=== PATIENT | female | born 1960 | race Native Hawaiian/Other Pacific Islander ===

== ENCOUNTER 2021-11-11 21:46 | Emergency (ER) | payer OTHER ==
[~2021-11-11] VITALS: Ht 152.4 cm; Wt 59.0 kg
[2021-11-11 21:46] VITALS: TEMP 98.2
[2021-11-11 22:34] LABS: PLATELET COUNT 166 K/uL (152-353)
[2021-11-11 23:20] VITALS: BP 148/67
[2021-11-12] MEDS ORDERED: ASPI81TA4 PO (10:42)
[2021-11-12] MEDS ORDERED: CITA20TA2 PO (10:43)
[2021-11-12] MEDS ORDERED: DIVALPROEX125 MG PO (10:43)
[2021-11-12] MEDS ORDERED: ROSU10TA PO (10:44)
[2021-11-12] MEDS ORDERED: DONEPEZIL HYDRO10 MG PO (10:44)
[2021-11-12] MEDS ORDERED: TEMA15CA19 PO (10:45)
[2021-11-12] MEDS ORDERED: ACETAMINOPHEN 500 MG PO (10:46)
[2021-11-12] MEDS ORDERED: GABA100C2 PO (10:47)
[2021-11-12] MEDS ORDERED: OXCARBAZEPIN150 MG PO (10:48)
[2021-11-12] MEDS ORDERED: MEMA10TA2 PO (10:49)
== END 2021-11-11 23:20 | disposition still patient (30) ==
LOC: ED 21:46
PROVIDERS: Emergency Medicine Emergency Medical Services
DX: R46.89 Other symptoms and signs involving appearance and behavior (principal); Z11.52 Encounter for screening for COVID-19; Z04.6 Encounter for general psychiatric examination, requested by authority; R00.1 Bradycardia, unspecified
CPT/HCPCS: 36415; 80053; 81002; 85027; 87635; 93005; 99283; U0003